=== PATIENT | female | born 1985 | race Caucasian/White ===

== ENCOUNTER 2017-01-26 20:34 | Inpatient (IN) | payer BC ==
[2017-01-26] MEDS ORDERED: Sodium Chloride 0.9% 2.5 ML Syringe FLUSH PRN (20:46)
[2017-01-26] MEDS ORDERED: Sodium Chloride 0.9% 10 ML Syringe FLUSH PRN (20:46)
[2017-01-26] MEDS ORDERED: Ampicillin 2 GM in Sodium Chloride 0.9% 100 ML IV ONE (20:46)
[2017-01-26] MEDS ORDERED: Butorphanol 1 MG/ML SDV IVPUSH PRN (20:46)
[2017-01-26] MEDS ORDERED: Lidocaine 1% 50 ML MDV INJECT PRN (20:46)
[2017-01-26] MEDS ORDERED: Terbutaline 1 MG/ML SDV SUBCUT PRN (20:46)
[2017-01-26] MEDS ORDERED: Methylergonovine 0.2 MG/1 ML Amp IM PRN (20:46)
[2017-01-26] MEDS ORDERED: Carboprost Tromethamine 250 MCG/1 ML Amp IM PRN (20:46)
[2017-01-26] MEDS ORDERED: Water For Irrigation,Sterile 1,000 ML Container IRR PRN (20:46)
[2017-01-26] MEDS ORDERED: Misoprostol 200 MCG Tab PO PRN (20:46)
[2017-01-26] MEDS ORDERED: Oxytocin/Lactated Ringers 30 UNIT/500 ML BAG IV SCH (21:00)
[2017-01-26] MEDS ORDERED: Misoprostol 25 MCG (1/4 of 100 MCG) Tab VAG SCH (21:00)
[2017-01-27] MEDS: Ampicillin 1 GM in Sodium Chloride 0.9% 50 ML IV SCH ×6 (01:45→21:53)
[2017-01-27] MEDS: Lactated Ringers 1,000 ML IV SCH (02:00)
[2017-01-27] MEDS: Misoprostol 25 MCG (1/4 of 100 MCG) Tab VAG PRN ×4 (04:01→17:44)
[2017-01-28] MEDS ORDERED: fentaNYL 100 MCG/2 ML SDV ONE ×2 (01:18→04:49)
[2017-01-28] MEDS ORDERED: Ropivacaine 0.2% 2 MG/ML 20 ML SDV ONE (01:19)
[2017-01-28] MEDS: Lactated Ringers 1,000 ML IV SCH ×2 (01:35→06:30)
[2017-01-28] MEDS: Ampicillin 1 GM in Sodium Chloride 0.9% 50 ML IV SCH ×4 (02:06→15:32)
--- NOTE | 2017-01-28 02:10 | PCM.PREANE ---
Preanesthetic Assessment - Anesthesia/Transfusion/Family Hx Family History of Anesthesia Reaction: No Transfusion History: No Prior Transfusion(s) - Review of Systems General: No Symptoms Pulmonary: No Symptoms Cardiovascular: No Symptoms Gastrointestinal: No symptoms Neurological: No Symptoms Other: Reports: None - Physical Assessment Height: 1.68 m Weight: 83.461 kg ASA Class: 3 Airway Class: Mallampati = 2 ROM/Head Extension: Full - Lab Values: Laboratory Last Values WBC 9.86 K/uL (4.0-11.0) 01/26/17 21:05 RBC 4.34 M/uL (4.30-5.90) 01/26/17 21:05 Hgb 12.2 g/dL (12.0-16.0) 01/26/17 21:05 Hct 36.4 % (36.0-46.0) 01/26/17 21:05 MCV 83.9 fL (80.0-98.0) 01/26/17 21:05 MCH 28.1 pg (27.0-32.0) 01/26/17 21:05 MCHC 33.5 g/dL (31.0-37.0) 01/26/17 21:05 RDW Std Deviation 43.6 fl (28.0-62.0) 01/26/17 21:05 RDW Coeff of Kiya 14 % (11.0-15.0) 01/26/17 21:05 Plt Count 111 K/uL (150-400) L 01/26/17 21:05 MPV 12.50 fL (7.40-12.00) H 01/26/17 21:05 Nucleated RBC % 0.0 /100WBC 01/26/17 21:05 Nucleated RBCs # 0 K/uL 01/26/17 21:05 Blood Type O POSITIVE 01/26/17 21:05 Antibody Screen NEGATIVE 01/26/17 21:05 - Allergies Allergies/Adverse Reactions: Allergies Allergy/AdvReac Type Severity Reaction Status Date / Time No Known Allergies Allergy Verified 01/26/17 18:07 - Anesthesia Plan Free Text/Narrative:: Platelets 111 - Acknowledgements Anesthesia Type Planned: Epidural Pt an Appropriate Candidate for the Planned Anesthesia: Yes Alternatives and Risks of Anesthesia Discussed w Pt/Guardian: Yes Pt/Guardian Understands and Agrees with Anesthesia Plan: Yes PreAnesthesia Questionnaire - Past Health History Medical/Surgical History: Denies Medical/Surgical History Hematologic History: Reports: None (Current thrombocytopenia) - Past Surgical History HEENT Surgical History: Reports: Oral Surgery (Jaw surgery) - SUBSTANCE USE Smoking Status *Q: Never Smoker Recreational Drug Use History: No - CURRENT (IN HOUSE) MEDS Current Meds: Current Medications Butorphanol Tartrate (Stadol) 1 mg IVPUSH ASDIRECTED PRN PRN Reason: Pain Carboprost Tromethamine (Hemabate Ds) 250 mcg IM ASDIRECTED PRN PRN Reason: Post Hemorrhage Lactated Ringer's (Ringers, Lactated) 1,000 mls @ 150 mls/hr IV ASDIRECTED REDD Last Admin: 01/27/17 02:00 Dose: 150 mls/hr Oxytocin/Lactated Ringer's (Pitocin In Lr 30 Units/500 Ml) 30 unit in 500 mls @ 2 mls/hr IV TITRATE REDD; 2 MUNITS/MIN PRN Reason: Protocol Ampicillin Sodium 1 gm/ Sodium (Chloride) 50 mls @ 100 mls/hr IV Q4H REDD Last Admin: 01/28/17 02:06 Dose: 100 mls/hr Lidocaine HCl (Xylocaine 1%) 50 ml INJECT .ONCE PRN PRN Reason: Laceration repair Methylergonovine Maleate (Methergine) 0.2 mg IM ASDIRECTED PRN PRN Reason: Post Hemorrhage Misoprostol (Cytotec) 200 mcg PO .ONCE PRN PRN Reason: Post Hemorrhage Misoprostol (Cytotec) 25 mcg VAG .ONCE REDD Last Admin: 01/26/17 21:17 Dose: 25 mcg Sodium Chloride (Saline Flush) 10 ml FLUSH ASDIRECTED PRN PRN Reason: Keep Vein Open Sodium Chloride (Saline Flush) 2.5 ml FLUSH ASDIRECTED PRN PRN Reason: Keep Vein Open Sterile Water (Sterile Water For Irrigation) 1,000 ml IRR ASDIRECTED PRN PRN Reason: delivery Terbutaline Sulfate (Brethine) 0.25 mg SUBCUT ASDIRECTED PRN PRN Reason: Tacysystole Discontinued Medications Fentanyl (Sublimaze) Confirm Administered Dose 100 mcg .ROUTE .STK-MED ONE Stop: 01/28/17 01:19 Ampicillin Sodium 2 gm/ Sodium (Chloride) 100 mls @ 200 mls/hr IV ONETIME ONE Stop: 01/26/17 21:15 Last Admin: 01/26/17 21:17 Dose: 200 mls/hr Oxytocin/Lactated Ringer's (Pitocin In Lr 30 Units/500 Ml) 30 unit in 500 mls @ 999 mls/hr IV TITRATE REDD PRN Reason: 999 MUNITS/MIN Stop: 01/26/17 21:31 Ropivacaine/Fentanyl/NS (Fentanyl 2 Mcg-Ropiv 0.2%-Ns) Confirm Administered Dose 100 mls @ as directed .ROUTE .STK-MED ONE Stop: 01/28/17 01:19 Misoprostol (Cytotec) 25 mcg VAG Q4H PRN PRN Reason: Cervical Ripening Stop: 01/28/17 00:47 Last Admin: 01/27/17 17:44 Dose: 25 mcg Ropivacaine (Naropin 0.2%) Confirm Administered Dose 20 ml .ROUTE .STK-MED ONE Stop: 01/28/17 01:20
[2017-01-28] MEDS: Oxytocin/Lactated Ringers 30 UNIT/500 ML BAG IV SCH ×2 (02:37→10:43)
[2017-01-28] MEDS ORDERED: Acetaminophen 500 MG Tab PO PRN (11:49)
[2017-01-28] MEDS ORDERED: Lanolin 100% Cream 7 GM Tube TOP PRN (11:49)
[2017-01-28] MEDS ORDERED: Bisacodyl 10 MG Supp RECTAL PRN (11:49)
[2017-01-28] MEDS ORDERED: oxyCODONE 5 MG Tab PO PRN (11:49)
[2017-01-28] MEDS ORDERED: Ibuprofen 800 MG Tab PO PRN (11:49)
[2017-01-28] MEDS: Witch Hazel Medicated Pads 40/Jar TOP PRN (13:26)
[2017-01-28] MEDS: Benzocaine/Menthol 20%-0.5% Spray 78 GM Cannister TOP PRN (13:26)
[2017-01-28] MEDS: Docusate Sodium 100 MG Cap PO PRN (13:27)
--- NOTE | 2017-01-28 17:33 | PCM48HPAN ---
Post Anesthesia Note - EVALUATION WITHIN 48HRS OF ANESTHETIC Vital Signs in Normal Range: Yes Patient Participated in Evaluation: Yes Respiratory Function Stable: Yes Airway Patent: Yes Cardiovascular Function Stable: Yes Hydration Status Stable: Yes Pain Control Satisfactory: Yes Nausea and Vomiting Control Satisfactory: Yes Mental Status Recovered: Yes - COMMENTS/OBSERVATIONS Free Text/Narrative:: Denies any complaints at this time. States epidural worked well.
[2017-01-28] MEDS: Ibuprofen 800 MG Tab PO PRN (20:28)
--- NOTE | 2017-01-28 21:34 | OR ---
SURGEON: Khushi Hatch DATE OF PROCEDURE: 01/28/2017 BRIEF PREDELIVERY HISTORY: This is a 31-year-old, G1, P0, presented to Labor and Delivery on January 26, 2017, for induction of labor for gestational thrombocytopenia at 39 weeks. On admission, heart tracing was noted to be a category 1 status. The patient was not vero regularly and cervix was very unfavorable. Cervix was 1 cm, thick, and high on admission. Of note, blood work was done and platelets were back down to 111, but overall stable. Of note, throughout the patient's , there was no concern of bleeding diathesis. The patient did receive vaginal misoprostol for cervical ripening. The patient received a total of 5 doses of vaginal misoprostol for cervical ripening. The patient also did receive a Cook catheter mechanical dilation balloon. Once balloon was dislodged, the patient was noted to be 5 cm dilated, 70% effaced, and down to -2 station. The patient underwent amniotomy for copious clear fluid. The patient eventually did receive her epidural. IV Pitocin was given as the patient's contractions were noted to be spaced out. Eventually, the patient progressed to complete status and +2 station and started maternal expulsive efforts. Of note, the patient's second stage of labor was approximately 5 hours. PREOPERATIVE DIAGNOSES: 1. Intrauterine at 39 weeks and 1 day. 2. GBS positive, treated with multiple doses of ampicillin. 3. Induction of labor for gestational thrombocytopenia. POSTOPERATIVE DIAGNOSES: 1. Intrauterine at 39 weeks and 1 day. 2. Delivered. 3. Periurethral laceration. 4. Second-degree perineal laceration. PROCEDURES PERFORMED: 1. Spontaneous-assisted vaginal delivery. 2. Repair of periurethral laceration. 3. Repair of midline perineal laceration. ANESTHESIA TYPE: Epidural and local. ESTIMATED BLOOD LOSS: Approximately 200. FINDINGS: A viable female in vertex presentation with score of 9 and 10 at 1 and 5 minutes respectively and weight of 3600 grams. Normal intact placenta with 3-vessel cord. Periurethral and a midline second-degree perineal laceration. SPECIMEN REMOVED: Placenta. CONDITION: Postop, the patient and did tolerate the procedure well. COMPLICATIONS: None known. DESCRIPTION OF PROCEDURE: This female under epidural anesthesia delivered a viable female with score of 8 and 10 at 1 and 5 minutes respectively and weight of 3600 grams. Delivery was via spontaneous-assisted vaginal delivery with in vertex presentation. Of note, the patient's second stage of labor was noted to be approximately 5 hours. Upon delivery of vertex, the neck was checked, there was no nuchal to be reduced. The anterior shoulder spontaneously delivered followed by the body. The was bulb suctioned at delivery and had a spontaneous cry. The infant was placed directly on mother's abdomen at request and cord was doubly clamped and cut. Cord blood was collected and sent for analysis. After delivery of , IV Pitocin was given in a bolus fashion for active management of third stage of labor. With signs of placental separation, a uterine fundal massage was completed along with traction on the umbilical cord. A normal intact placenta with 3-vessel cord was delivered. After delivery of and placenta; the vagina, perineum, and rectum were explored. The patient had a heavy bleeding. Periurethral laceration was repaired with 4-0 Vicryl suture. The patient's second-degree perineal laceration was repaired with 3-0 Vicryl suture and a 2-0 Vicryl was used to reapproximate the bulbocavernosus muscles. After repair, the lower uterine segment and vagina were cleared of all clots and debris. Afterwards, the patient was cleansed, pads were changed, the bed was returned to functioning status. The patient and tolerated the procedure well. Sponge, lap, needle, and instrument counts were correct. JACIEL / ELLIOT /[id number] AVNI
[2017-01-29] MEDS: Ibuprofen 800 MG Tab PO PRN ×2 (04:18→12:39)
[2017-01-29] MEDS: Docusate Sodium 100 MG Cap PO PRN (09:42)
[2017-01-29] MEDS: Benzocaine/Menthol 20%-0.5% Spray 78 GM Cannister TOP PRN (09:53)
[2017-01-29] MEDS: Witch Hazel Medicated Pads 40/Jar TOP PRN (09:53)
[2017-01-29 11:15] VITALS: BP 105/68
--- NOTE | 2017-01-29 12:02 | PCM.PNPP ---
- General Info Date of Service: 01/29/17 Functional Status: Reports: pain controlled, tolerating diet, ambulating, urinating - Review of Systems General: Reports: No Symptoms HEENT: Reports: no symptoms Pulmonary: Reports: no symptoms Cardiovascular: Reports: No Symptoms Gastrointestinal: Reports: No symptoms Genitourinary: Reports: no symptoms Musculoskeletal: Reports: no symptoms Skin: Reports: no symptoms Neurological: Reports: No Symptoms Psychiatric: Reports: no symptoms - General Info Date of Service: 01/29/17 - Patient Data Vital Signs - most recent: Last Vital Signs Temp 37.1 C 01/29/17 09:00 Pulse 81 01/29/17 09:00 Resp 17 01/29/17 09:00 BP 105/68 01/29/17 09:00 Pulse Ox 97 01/29/17 09:00 Weight - most recent: 83.461 kg Lab Results - last 24 hrs: Laboratory Results - last 24 hr 01/29/17 Range/Units 05:30 Hgb 9.9 L (12.0-16.0) g/dL Hct 30.4 L (36.0-46.0) % Med Orders - Current: Current Medications Acetaminophen (Tylenol Extra Strength) 500 mg PO Q4H PRN PRN Reason: Pain Last Admin: 01/29/17 09:42 Dose: 500 mg Benzocaine/Menthol (Dermoplast Pain Relief 20%-0.5% Eastman) 78 gm TOP ASDIRECTED PRN PRN Reason: Perineal Comfort Measure Last Admin: 01/29/17 09:53 Dose: 1 can Bisacodyl (Dulcolax) 10 mg RECTAL .ONCE PRN PRN Reason: Constipation Butorphanol Tartrate (Stadol) 1 mg IVPUSH ASDIRECTED PRN PRN Reason: Pain Carboprost Tromethamine (Hemabate Ds) 250 mcg IM ASDIRECTED PRN PRN Reason: Post Hemorrhage Docusate Sodium (Colace) 100 mg PO BID PRN PRN Reason: Constipation Last Admin: 01/29/17 09:42 Dose: 100 mg Emollient Ointment (Lansinoh Hpa) 0 gm TOP ASDIRECTED PRN PRN Reason: Sore Nipples Lactated Ringer's (Ringers, Lactated) 1,000 mls @ 150 mls/hr IV ASDIRECTED REDD Last Admin: 01/28/17 06:30 Dose: 150 mls/hr Oxytocin/Lactated Ringer's (Pitocin In Lr 30 Units/500 Ml) 30 unit in 500 mls @ 2 mls/hr IV TITRATE REDD; 2 MUNITS/MIN PRN Reason: Protocol Last Admin: 01/28/17 10:43 Dose: 10 munits/min, 10 mls/hr Ibuprofen (Motrin) 800 mg PO Q6H PRN PRN Reason: Pain Last Admin: 01/29/17 04:18 Dose: 800 mg Ibuprofen (Motrin) 800 mg PO Q6H PRN PRN Reason: Pain Last Admin: 01/28/17 13:27 Dose: 800 mg Lidocaine HCl (Xylocaine 1%) 50 ml INJECT .ONCE PRN PRN Reason: Laceration repair Last Admin: 01/28/17 10:42 Dose: 50 ml Methylergonovine Maleate (Methergine) 0.2 mg IM ASDIRECTED PRN PRN Reason: Post Hemorrhage Misoprostol (Cytotec) 200 mcg PO .ONCE PRN PRN Reason: Post Hemorrhage Misoprostol (Cytotec) 25 mcg VAG .ONCE REDD Last Admin: 01/26/17 21:17 Dose: 25 mcg Oxycodone HCl (Oxycodone) 5 mg PO Q2H PRN PRN Reason: Pain Sodium Chloride (Saline Flush) 10 ml FLUSH ASDIRECTED PRN PRN Reason: Keep Vein Open Sodium Chloride (Saline Flush) 2.5 ml FLUSH ASDIRECTED PRN PRN Reason: Keep Vein Open Sterile Water (Sterile Water For Irrigation) 1,000 ml IRR ASDIRECTED PRN PRN Reason: delivery Last Admin: 01/28/17 10:42 Dose: 1,000 ml Terbutaline Sulfate (Brethine) 0.25 mg SUBCUT ASDIRECTED PRN PRN Reason: Tacysystole Witch Leanne (Tucks) 1 pad TOP ASDIRECTED PRN PRN Reason: comfort care Last Admin: 01/29/17 09:53 Dose: 1 tub Discontinued Medications Fentanyl (Sublimaze) Confirm Administered Dose 100 mcg .ROUTE .STK-MED ONE Stop: 01/28/17 01:19 Last Admin: 01/28/17 10:41 Dose: Not Given Fentanyl (Sublimaze) Confirm Administered Dose 100 mcg .ROUTE .STK-MED ONE Stop: 01/28/17 04:50 Last Admin: 01/28/17 10:41 Dose: Not Given Ampicillin Sodium 2 gm/ Sodium (Chloride) 100 mls @ 200 mls/hr IV ONETIME ONE Stop: 01/26/17 21:15 Last Admin: 01/26/17 21:17 Dose: 200 mls/hr Oxytocin/Lactated Ringer's (Pitocin In Lr 30 Units/500 Ml) 30 unit in 500 mls @ 999 mls/hr IV TITRATE REDD PRN Reason: 999 MUNITS/MIN Stop: 01/26/17 21:31 Last Admin: 01/28/17 09:53 Dose: Not Given Ampicillin Sodium 1 gm/ Sodium (Chloride) 50 mls @ 100 mls/hr IV Q4H [facility] Last Admin: 01/28/17 15:32 Dose: Not Given Ropivacaine/Fentanyl/NS (Fentanyl 2 Mcg-Ropiv 0.2%-Ns) Confirm Administered Dose 100 mls @ as directed .ROUTE .STK-MED ONE Stop: 01/28/17 01:19 Last Admin: 01/28/17 10:41 Dose: Not Given Ropivacaine/Fentanyl/NS (Fentanyl 2 Mcg-Ropiv 0.2%-Ns) Confirm Administered Dose 100 mls @ as directed .ROUTE .STK-MED ONE Stop: 01/28/17 09:45 Last Admin: 01/28/17 10:42 Dose: Not Given Misoprostol (Cytotec) 25 mcg VAG Q4H PRN PRN Reason: Cervical Ripening Stop: 01/28/17 00:47 Last Admin: 01/27/17 17:44 Dose: 25 mcg Ropivacaine (Naropin 0.2%) Confirm Administered Dose 20 ml .ROUTE .STK-MED ONE Stop: 01/28/17 01:20 Last Admin: 01/28/17 10:41 Dose: Not Given - Interaction Infant Disposition, : [place] in Room with Family Interaction: Holding Infant Feeding: Breastfed ; Nursed Well Support Person: - Recovery Exam Fundal Tone: Firm Fundal Level: 1 Fingerbreadths Below Umbilicus Fundal Placement: Midline Lochia Amount: Scant Lochia Color: Rubra/Red Perineum Description: Intact, Minimal Bruising/Swelling Episiotomy/Laceration: Approximated Bladder Status: Nonpalpable, Voiding Urinary Elimination: Voided - Exam General: alert, oriented Neck: supple Lungs: Clear to auscultation, Normal respiratory effort Cardiovascular: Regular Rate, Regular Rhythm Abdomen: bowel sounds present, soft, no tenderness Extremities: no calf tenderness Skin: warm, dry, intact Neurological: no new focal deficit Psy/Mental Status: alert, normal affect, normal mood - Problem List & Annotations (1) Vaginal delivery SNOMED Code(s): 160352390 Code(s): O80 - ENCOUNTER FOR FULL-TERM UNCOMPLICATED DELIVERY Status: Acute Current Visit: Yes - Problem List Review Problem List Initiated/Reviewed/Updated: Yes - My Orders Last 24 Hours: My Active Orders 01/28/17 11:49 Patient Status [ADT] Routine May Shower [RC] ASDIRECTED Up ad Tsering [RC] ASDIRECTED Vital Signs [RC] PER UNIT ROUTINE Acetaminophen [Tylenol Extra Strength] 500 mg PO Q4H PRN Benzocaine/Menthol [Dermoplast Pain Relief 20%-0.5% Eastman] 78 gm TOP ASDIRECTED PRN Bisacodyl [Dulcolax] 10 mg RECTAL .ONCE PRN Docusate Sodium [Colace] 100 mg PO BID PRN Ibuprofen [Motrin] 800 mg PO Q6H PRN Lanolin [Lansinoh HPA] See Dose Instructions TOP ASDIRECTED PRN Witch Leanne [Tucks] 1 pad TOP ASDIRECTED PRN oxyCODONE 5 mg PO Q2H PRN Assess Lochia [WOMSER] Per Unit Routine Assess Uterine Involution [WOMSER] Per Unit Routine Breast Pump [WOMSER] Per Unit Routine Peripheral IV Discontinue [OM.PC] Routine 01/28/17 11:51 Ice Therapy [OM.PC] Per Unit Routine Perineal Care [OM.PC] Per Unit Routine Sitz Bath [OM.PC] Per Unit Routine - Assessment Assessment:: PPD#1 S/p SAVD Doing well Anticipate discharge home tomorrow - Plan Plan:: Increase ambulation Work in breast feeding Routine care
== END 2017-01-29 19:55 | disposition home or self-care (01) | DRG 560 ==
LOC: MW.OBCHECK 20:34 → MW.OB 20:35 → MW.OBCHECK 20:36 → MW.OB 20:36 → OBSVTOIN 01-28 09:53 → MW.OB 01-28 13:30
PROVIDERS: ADMIT Obstetrics & Gynecology; ATTEND Obstetrics & Gynecology
PROC: 10E0XZZ Delivery of Products of Conception, External Approach (ICD-10-PCS; principal; 2017-01-28)
PROC: 0KQM0ZZ Repair Perineum Muscle, Open Approach (ICD-10-PCS; 2017-01-28)
PROC: 3E0P7GC Introduction of Other Therapeutic Substance into Female Reproductive, Via Natural or Artificial Opening (ICD-10-PCS; 2017-01-28)
PROC: 00HU33Z Insertion of Infusion Device into Spinal Canal, Percutaneous Approach (ICD-10-PCS; 2017-01-28)
PROC: 3E0R3CZ (ICD-10-PCS; 2017-01-28)
DX: O99.12 Other diseases of the blood and blood-forming organs and certain disorders involving the immune mechanism complicating childbirth (principal); O70.1 Second degree perineal laceration during delivery; Z3A.39 39 weeks gestation of pregnancy; Z37.0 Single live birth; O99.824 Streptococcus B carrier state complicating childbirth
CPT/HCPCS: 01967; 36415; 59025; 85014; 85018; 85027; 86850; 86900; 86901; A9270-GY; J0290; J2795; J3010; J7030; J7050; J7120

== ENCOUNTER 2020-04-25 10:37 | Inpatient (IN) | payer BC ==
[2020-04-25] MEDS ORDERED: Lidocaine 1% 50 ML MDV INJECT PRN (13:52)
[2020-04-25] MEDS ORDERED: Nalbuphine 10 MG/1 ML Vial IVPUSH PRN (13:52)
[2020-04-25] MEDS ORDERED: Sodium Chloride 0.9% 10 ML Syringe FLUSH PRN (13:52)
[2020-04-25] MEDS ORDERED: Sodium Chloride 0.9% 2.5 ML Syringe FLUSH PRN (13:52)
[2020-04-25] MEDS ORDERED: Butorphanol 1 MG/ML SDV IVPUSH PRN (13:52)
[2020-04-25] MEDS ORDERED: Terbutaline 1 MG/ML SDV SUBCUT PRN (13:52)
[2020-04-25] MEDS ORDERED: Sodium Chloride 0.9% 10 ML SDV IV PRN (13:52)
[2020-04-25] MEDS ORDERED: Methylergonovine 0.2 MG/1 ML Amp IM PRN (13:52)
[2020-04-25] MEDS ORDERED: Misoprostol 200 MCG Tab PO PRN (13:52)
[2020-04-25] MEDS ORDERED: Ondansetron 4 MG/2 ML SDV IVPUSH PRN (13:52)
[2020-04-25] MEDS ORDERED: Water For Irrigation,Sterile 1,000 ML Container IRR PRN (13:52)
[2020-04-25] MEDS ORDERED: Carboprost Tromethamine 250 MCG/1 ML Amp IM PRN (13:52)
[2020-04-25] MEDS ORDERED: Tranexamic Acid 1,000 MG in Sodium Chloride 0.9% 100 ML IV PRN (13:52)
[2020-04-25] MEDS ORDERED: Oxytocin/0.9 % Sodium Chloride 30 UNIT/500 ML BAG IV SCH ×2 (14:00)
[2020-04-25] MEDS ORDERED: Ampicillin 2 GM in Sodium Chloride 0.9% 100 ML IV ONE (15:00)
[2020-04-25] MEDS: Lactated Ringers 1,000 ML IV SCH (15:45)
[2020-04-25] MEDS: Misoprostol 25 MCG (1/4 of 100 MCG) Tab VAG PRN ×2 (16:11→20:15)
[2020-04-25] MEDS: Ampicillin 1 GM in Sodium Chloride 0.9% 50 ML IV SCH (20:05)
[2020-04-26] MEDS: Ampicillin 1 GM in Sodium Chloride 0.9% 50 ML IV SCH ×3 (00:08→07:36)
[2020-04-26] MEDS ORDERED: Ropivacaine HCl/PF 100 ML ONE (04:13)
[2020-04-26] MEDS ORDERED: fentaNYL 100 MCG/2 ML SDV ONE (04:13)
[2020-04-26] MEDS: Lactated Ringers 1,000 ML IV SCH ×2 (04:34→07:41)
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
--- NOTE | 2020-04-26 04:41 | PCM.PRNOTE ---
- Free Text/Narrative Note: Anes Note Patient requests epidural for L&D. Sitting position, level L3-L4 midline approach. Sterile technique, chloraprep scrub to lumbar area. Sterile fenestrated drape applied. Epidural space easily achieved using BRENDA technique. BRENDA at 4 cm. Cath threaded easily 5 cm. Cath secured at 11 cm at skin using sterile clear adhesive dressing. Test 0426 3 cc 1 .5% lido with epi negative. 0430 Load 10 cc 0.2% ropiv with 1 mcg cc fentanyl in slow divided doses. 0435 pump started with 90 cc same solution. Rate is 8 cc hr with 6 cc q 20 min prn bolus. Maria Alejandra well. Time with patient [id number] Keenan Claire CRNA
--- NOTE | 2020-04-26 11:05 | PCM.DEL ---
<Facundo Boyd - Last Filed: 04/26/20 11:00> L & D Note - General Info Date of Service: 04/26/20 - Delivery Note Labor: Augmented by Oxytocin Cervical Ripening Method: Misoprostil Delivery Outcome: Livebirth Delivery Method: Spontaneous Vaginal Delivery-Single Delivery Mode: Spontaneous Presentation: Right Occiput Anterior (AARON) Nuchal Cord: Present Anesthesia Type: Epidural Amniotic Fluid Description: Clear Episiotomy Type: None Laceration: 1st Degree Suture type: Vicryl Suture size: 3-0 Placenta: Intact, Spontaneous Cord: 3 Vessels Estimated Blood Loss: 300 Resuscitation Needed: No Jamison: Suctioned, Warmer Used Score 1 min: 8 Score 5 min: 8 Second Stage Interventions: Reports: Pushing Effectively, Pushing, Stirrups/Leg Supports Delivery Comments (Free Text/Narrative):: of 3880 g (8 lb 9 oz) female live infant by 34-year-old now following IOL at 39w0d due to gestational thrombocytopenia. - Patient Data Weight - Most Recent: 86.183 kg Lab Results Last 24 Hours: Laboratory Results - last 24 hr 04/25/20 04/25/20 04/25/20 Range/Units 14:08 15:35 15:35 WBC 9.61 (4.0-11.0) K/uL RBC 3.57 L (4.30-5.90) M/uL Hgb 10.8 L (12.0-16.0) g/dL Hct 32.3 L (36.0-46.0) % MCV 90.5 (80.0-98.0) fL MCH 30.3 (27.0-32.0) pg MCHC 33.4 (31.0-37.0) g/dL RDW Std Deviation 48.7 (28.0-62.0) fl RDW Coeff of Kiya 15 (11.0-15.0) % Plt Count 152 (150-400) K/uL MPV 12.20 H (7.40-12.00) fL Nucleated RBC % 0.0 /100WBC Nucleated RBCs # 0 K/uL COVID-19 (OLE) NEGATIVE (NEGATIVE) Blood Type O POSITIVE Antibody Screen NEGATIVE Med Orders - Current: Current Medications Butorphanol Tartrate (Stadol) 1 mg IVPUSH Q1H PRN PRN Reason: Pain Carboprost Tromethamine (Hemabate Ds) 250 mcg IM ASDIRECTED PRN PRN Reason: Post Hemorrhage Oxytocin/Sodium Chloride (Oxytocin 30 Unit/500 Ml-Ns) 30 unit in 500 mls @ 999 mls/hr IV TITRATE [facility] Tranexamic Acid 1,000 mg/ (Sodium Chloride) 110 mls @ 660 mls/hr IV ONETIME PRN PRN Reason: Bleeding Oxytocin/Sodium Chloride (Oxytocin 30 Unit/500 Ml-Ns) 30 unit in 500 mls @ 2 mls/hr IV TITRATE [facility]; Protocol Last Titration: 04/26/20 05:22 Dose: 4 munits/min, 4 mls/hr Documented by: Lactated Ringer's (Ringers, Lactated) 1,000 mls @ 150 mls/hr IV ASDIRECTED REDD Last Admin: 04/26/20 07:41 Dose: 150 mls/hr Documented by: Ampicillin Sodium 1 gm/ Sodium (Chloride) 50 mls @ 100 mls/hr IV Q4H [facility] Last Admin: 04/26/20 07:36 Dose: 100 mls/hr Documented by: Lidocaine HCl (Xylocaine 1%) 50 ml INJECT ONETIME PRN PRN Reason: Laceration repair Methylergonovine Maleate (Methergine) 0.2 mg IM ASDIRECTED PRN PRN Reason: Post Hemorrhage Misoprostol (Cytotec) 200 mcg PO ONETIME PRN PRN Reason: Post Hemorrhage Misoprostol (Cytotec) 25 mcg VAG Q4H PRN PRN Reason: Cervical Ripening Last Admin: 04/25/20 20:15 Dose: 25 mcg Documented by: Nalbuphine HCl (Nubain) 10 mg IVPUSH Q1H PRN PRN Reason: Pain (severe 7-10) Ondansetron HCl (Zofran) 4 mg IVPUSH Q6H PRN PRN Reason: Nausea/Vomiting Sodium Chloride (Saline Flush) 10 ml FLUSH ASDIRECTED PRN PRN Reason: Keep Vein Open Sodium Chloride (Saline Flush) 2.5 ml FLUSH ASDIRECTED PRN PRN Reason: Keep Vein Open Sodium Chloride (Normal Saline) 10 ml IV ASDIRECTED PRN PRN Reason: IV Use Sterile Water (Sterile Water For Irrigation) 1,000 ml IRR ASDIRECTED PRN PRN Reason: delivery Terbutaline Sulfate (Brethine) 0.25 mg SUBCUT ASDIRECTED PRN PRN Reason: Tacysystole Discontinued Medications Fentanyl (Sublimaze) Confirm Administered Dose 100 mcg .ROUTE .STK-MED ONE Stop: 04/26/20 04:14 Ampicillin Sodium 2 gm/ Sodium (Chloride) 100 mls @ 200 mls/hr IV ONETIME ONE Stop: 04/25/20 15:29 Last Admin: 04/25/20 16:08 Dose: 200 mls/hr Documented by: Ropivacaine (Naropin 0.2%) Confirm Administered Dose 100 mls @ as directed .ROUTE .STK-MED ONE Stop: 04/26/20 04:14 <Yulia Du - Last Filed: 04/26/20 11:13> L & D Note - General Info Mother's Due Date: 05/01/20 - Delivery Note Nuchal Cord: Reduced (after delivery of body) Laceration: Periurethral (right) - General Info Date of Service: 04/26/20 - Patient Data Lab Results Last 24 Hours: Laboratory Results - last 24 hr 04/25/20 04/25/20 04/25/20 Range/Units 14:08 15:35 15:35 WBC 9.61 (4.0-11.0) K/uL RBC 3.57 L (4.30-5.90) M/uL Hgb 10.8 L (12.0-16.0) g/dL Hct 32.3 L (36.0-46.0) % MCV 90.5 (80.0-98.0) fL MCH 30.3 (27.0-32.0) pg MCHC 33.4 (31.0-37.0) g/dL RDW Std Deviation 48.7 (28.0-62.0) fl RDW Coeff of Kiya 15 (11.0-15.0) % Plt Count 152 (150-400) K/uL MPV 12.20 H (7.40-12.00) fL Nucleated RBC % 0.0 /100WBC Nucleated RBCs # 0 K/uL COVID-19 (OLE) NEGATIVE (NEGATIVE) Blood Type O POSITIVE Antibody Screen NEGATIVE Med Orders - Current: Current Medications Acetaminophen (Tylenol Extra Strength) 1,000 mg PO Q6H PRN PRN Reason: Pain Benzocaine/Menthol (Dermoplast Pain Relief 20%-0.5% [place]) 78 gm TOP ASDIRECTED PRN PRN Reason: Perineal Comfort Measure Bisacodyl (Dulcolax) 10 mg RECTAL ONETIME PRN PRN Reason: Constipation Butorphanol Tartrate (Stadol) 1 mg IVPUSH Q1H PRN PRN Reason: Pain Carboprost Tromethamine (Hemabate Ds) 250 mcg IM ASDIRECTED PRN PRN Reason: Post Hemorrhage Docusate Sodium (Colace) 100 mg PO BID PRN PRN Reason: Constipation Emollient Ointment (Lansinoh Hpa) 0 gm TOP ASDIRECTED PRN PRN Reason: Sore Nipples Oxytocin/Sodium Chloride (Oxytocin 30 Unit/500 Ml-Ns) 30 unit in 500 mls @ 999 mls/hr IV TITRATE [facility] Tranexamic Acid 1,000 mg/ (Sodium Chloride) 110 mls @ 660 mls/hr IV ONETIME PRN PRN Reason: Bleeding Oxytocin/Sodium Chloride (Oxytocin 30 Unit/500 Ml-Ns) 30 unit in 500 mls @ 2 mls/hr IV TITRATE [facility]; Protocol Last Titration: 04/26/20 05:22 Dose: 4 munits/min, 4 mls/hr Documented by: Lactated Ringer's (Ringers, Lactated) 1,000 mls @ 150 mls/hr IV ASDIRECTED [facility] Last Admin: 04/26/20 07:41 Dose: 150 mls/hr Documented by: Ampicillin Sodium 1 gm/ Sodium (Chloride) 50 mls @ 100 mls/hr IV Q4H [facility] Last Admin: 04/26/20 07:36 Dose: 100 mls/hr Documented by: Ibuprofen (Motrin) 800 mg PO Q8H PRN PRN Reason: Pain Lidocaine HCl (Xylocaine 1%) 50 ml INJECT ONETIME PRN PRN Reason: Laceration repair Methylergonovine Maleate (Methergine) 0.2 mg IM ASDIRECTED PRN PRN Reason: Post Hemorrhage Misoprostol (Cytotec) 200 mcg PO ONETIME PRN PRN Reason: Post Hemorrhage Misoprostol (Cytotec) 25 mcg VAG Q4H PRN PRN Reason: Cervical Ripening Last Admin: 04/25/20 20:15 Dose: 25 mcg Documented by: Nalbuphine HCl (Nubain) 10 mg IVPUSH Q1H PRN PRN Reason: Pain (severe 7-10) Ondansetron HCl (Zofran) 4 mg IVPUSH Q6H PRN PRN Reason: Nausea/Vomiting Oxycodone HCl (Oxycodone) 5 mg PO Q2H PRN PRN Reason: Pain Sertraline HCl (Zoloft) 75 mg PO DAILY REDD Sodium Chloride (Saline Flush) 10 ml FLUSH ASDIRECTED PRN PRN Reason: Keep Vein Open Sodium Chloride (Saline Flush) 2.5 ml FLUSH ASDIRECTED PRN PRN Reason: Keep Vein Open Sodium Chloride (Normal Saline) 10 ml IV ASDIRECTED PRN PRN Reason: IV Use Sterile Water (Sterile Water For Irrigation) 1,000 ml IRR ASDIRECTED PRN PRN Reason: delivery Terbutaline Sulfate (Brethine) 0.25 mg SUBCUT ASDIRECTED PRN PRN Reason: Tacysystole Witch Leanne (Tucks) 1 pad TOP ASDIRECTED PRN PRN Reason: comfort care Discontinued Medications Fentanyl (Sublimaze) Confirm Administered Dose 100 mcg .ROUTE .STK-MED ONE Stop: 04/26/20 04:14 Ampicillin Sodium 2 gm/ Sodium (Chloride) 100 mls @ 200 mls/hr IV ONETIME ONE Stop: 04/25/20 15:29 Last Admin: 04/25/20 16:08 Dose: 200 mls/hr Documented by: Ropivacaine (Naropin 0.2%) Confirm Administered Dose 100 mls @ as directed .ROUTE .STK-MED ONE Stop: 04/26/20 04:14 - Problem List & Annotations (1) Vaginal delivery SNOMED Code(s): 155597505 Code(s): O80 - ENCOUNTER FOR FULL-TERM UNCOMPLICATED DELIVERY Status: Acute Current Visit: No - Problem List Review Problem List Initiated/Reviewed/Updated: Yes - My Orders Last 24 Hours: My Active Orders 04/26/20 Lunch Regular Diet [DIET] 04/26/20 11:09 Patient Status [ADT] Routine May Shower [RC] ASDIRECTED Notify Provider Vital Signs [RC] ASDIRECTED Up ad Tsering [RC] ASDIRECTED Vital Signs [RC] PER UNIT ROUTINE Acetaminophen [Tylenol Extra Strength] 1,000 mg PO Q6H PRN Benzocaine/Menthol [Dermoplast Pain Relief 20%-0.5% [place]] 78 gm TOP ASDIRECTED PRN Docusate Sodium [Colace] 100 mg PO BID PRN Ibuprofen [Motrin] 800 mg PO Q8H PRN Lanolin [Lansinoh HPA] See Dose Instructions TOP ASDIRECTED PRN bisacodyL [Dulcolax] 10 mg RECTAL ONETIME PRN oxyCODONE 5 mg PO Q2H PRN witch Leanne [Tucks] 1 pad TOP ASDIRECTED PRN Assess Lochia [WOMSER] Per Unit Routine Assess Uterine Involution [WOMSER] Per Unit Routine Breast Pump [WOMSER] Per Unit Routine Ice Therapy [OM.PC] Per Unit Routine Perineal Care [OM.PC] Per Unit Routine Peripheral IV Discontinue [OM.PC] Routine Sitz Bath [OM.PC] Per Unit Routine 04/26/20 11:10 Cooling Warming Measures [RC] ASDIRECTED 04/27/20 05:11 HEMOGLOBIN/HEMATOCRIT,HH [HEME] Timed 04/27/20 09:00 Sertraline [Zoloft] 75 mg PO DAILY - Assessment Assessment:: 34yo s/p at 39w2d - Plan Plan:: Admit to unit for routine care. Received adequate antibiotic prophylaxis with Ampicillin for GBS+ status.
[2020-04-26] MEDS ORDERED: Ibuprofen 800 MG Tab PO PRN (11:09)
[2020-04-26] MEDS ORDERED: oxyCODONE 5 MG Tab PO PRN (11:09)
[2020-04-26] MEDS ORDERED: Bisacodyl 10 MG Supp RECTAL PRN (11:09)
[2020-04-26] MEDS ORDERED: Docusate Sodium 100 MG Cap PO PRN (11:09)
[2020-04-26] MEDS ORDERED: Benzocaine/Menthol 20%-0.5% Spray 78 GM Cannister TOP PRN (11:09)
[2020-04-26] MEDS ORDERED: Witch Hazel Medicated Pads 40/Jar TOP PRN (11:09)
[2020-04-26] MEDS ORDERED: Lanolin 100% Cream 7 GM Tube TOP PRN (11:09)
[2020-04-26] MEDS: Acetaminophen 500 MG Tab PO PRN ×2 (12:43→22:43)
[2020-04-26] MEDS ORDERED: Sodium Chloride 0.9% 100 ML ONE (13:27)
--- NOTE | 2020-04-26 13:55 | PCM.SN.2 ---
- Free Text/Narrative Note: Notified by RN of patient with bleeding and clots, 1200g on scale. Order given for stat CBC, 1g IV tranexamic acid, and 0.2mg IM methergine. BP normal, pulse 100s. Bladder emptied 800cc. Upon arrival, large amount of blood and clot noted on new pad. Bimanual exam performed with moderate amount of clot evacuated. Fundus remained firm throughout exam. Clot and blood measured, 600g on scale. 1000mcg misoprostol placed per rectum. CBC is pending. Total EBL since delivery 2100cc. Reviewed signs of blood-loss anemia with patient and when to call nurse. Will monitor continued blood loss closely. Discussed with patient risk of needing blood transfusion given significant hemorrhage. Pulse now in 80-90s.
--- NOTE | 2020-04-26 14:07 | OR ---
SURGEON: Yulia Du MD DATE OF PROCEDURE: 04/26/2020 PREOPERATIVE DIAGNOSES: 1. A 34-year-old G2, P1-0-0-1 at 39 weeks 1 day gestation. 2. Gestational thrombocytopenia. 3. Group B Streptococcus positive. POSTOPERATIVE DIAGNOSES: 1. A 34-year-old G2, P2-0-0-2 status post spontaneous vaginal delivery at 39 weeks 2 days' gestation. 2. Gestational thrombocytopenia. 3. Group B Streptococcus positive. 4. First-degree perineal and right periurethral lacerations. PROCEDURE: Spontaneous vaginal delivery and repair of first-degree perineal and right periurethral lacerations. PRIMARY SURGEON: Yulia Du MD COAGULATING BATH OPERATOR: Facundo Boyd, medical student. ANESTHESIA: Epidural. ESTIMATED BLOOD LOSS: 300 mL. FINDINGS: Live female infant in cephalic presentation. scores of 8 and 8 at one and five minutes respectively. Weight 3880 g. First-degree perineal and right periurethral lacerations. Placenta intact with 3-vessel cord. INDICATIONS: This is a 34-year-old G2, P1-0-0-1, who presented at 39 weeks 1 day gestation for planned induction of labor due to gestational thrombocytopenia. On presentation, her platelets were found to be normal at 152. Cytotec was started for induction of labor. Ampicillin was begun for GBS prophylaxis. At approximately 4 cm dilated, Pitocin was started. At 7 cm dilated, the patient underwent artificial rupture of membranes with clear fluid noted. She received an epidural for pain control. She progressed to complete cervical dilation and began pushing. I was called to the room. DESCRIPTION OF PROCEDURE: I arrived to the room with head at +3 station. Over the next several contractions, the patient pushed and delivered a live female infant. The head was delivered followed by the shoulders and remainder of the body. Nuchal cord x1 was reduced after delivery of the body. The infant was placed on maternal abdomen. After approximately 60 seconds, the cord was clamped and cut. The placenta then delivered intact with 3-vessel cord via the Bradford-Sutherland maneuver. The perineum was inspected, and first-degree perineal and a right periurethral laceration were noted. These were repaired to anatomy and hemostasis with 3-0 Vicryl. Fundus was firm below the umbilicus with minimal bleeding. The patient and infant tolerated the delivery well. [id number] / MODL /[id number] AVNI
--- NOTE | 2020-04-26 14:32 | PCM.SN.2 ---
- Free Text/Narrative Note: BP 110/60-70s, HR 60-70s Fundus has remained firm with scant bleeding since administration of methergine, tranexamic acid, and misoprostol. Platelets 113, hemoglobin 11.6 Will monitor bleeding and VS closely, repeat CBC in 4 hours - if remains stable at that time, will repeat in AM.
--- NOTE | 2020-04-27 07:28 | PCM48HPAN ---
Post Anesthesia Note - EVALUATION WITHIN 48HRS OF ANESTHETIC Vital Signs in Normal Range: Yes Patient Participated in Evaluation: Yes Respiratory Function Stable: Yes Airway Patent: Yes Cardiovascular Function Stable: Yes Hydration Status Stable: Yes Pain Control Satisfactory: Yes Nausea and Vomiting Control Satisfactory: Yes Mental Status Recovered: Yes Vital Signs: Last Vital Signs Temp 36.2 C 04/27/20 05:19 Pulse 84 04/27/20 05:19 Resp 15 04/27/20 05:19 BP 94/52 L 04/27/20 05:19 Pulse Ox 96 04/27/20 05:19
[2020-04-27 07:42] VITALS: BP 121/74; PULSE 109
--- NOTE | 2020-04-27 07:44 | PCM.PNPP ---
<Facundo Boyd - Last Filed: 04/27/20 07:39> - General Info Date of Service: 04/27/20 Functional Status: Reports: Pain Controlled, Tolerating Diet, Ambulating, Urinating, Other (Lochia is watery and brownish this morning, no blood clots) - Review of Systems General: Reports: No Symptoms, Other (States that "she is feeling pretty good". Denies dizziness. ) HEENT: Reports: No Symptoms Pulmonary: Reports: No Symptoms, Other (Denies SOB and cough) Cardiovascular: Reports: No Symptoms, Other (Denies chest pain and orthopnea) Gastrointestinal: Reports: No Symptoms, Flatus, Other (Denies abdominal pain or constipation. Has had flatus but not a BM yet) Genitourinary: Reports: No Symptoms, Other (Has been voiding) Musculoskeletal: Reports: No Symptoms Skin: Reports: No Symptoms Neurological: Reports: No Symptoms Psychiatric: Reports: No Symptoms - General Info Date of Service: 04/27/20 - Patient Data Vital Signs - Most Recent: Last Vital Signs Temp 36.2 C 04/27/20 05:19 Pulse 84 04/27/20 05:19 Resp 15 04/27/20 05:19 BP 94/52 L 04/27/20 05:19 Pulse Ox 96 04/27/20 05:19 Weight - Most Recent: 86.183 kg Lab Results - Last 24 Hours: Laboratory Results - last 24 hr 04/26/20 04/26/20 04/27/20 Range/Units 13:55 18:02 05:50 WBC 11.92 H 13.11 H 11.55 H (4.0-11.0) K/uL RBC 3.81 L 3.70 L 3.20 L (4.30-5.90) M/uL Hgb 11.6 L 11.2 L 9.9 L (12.0-16.0) g/dL Hct 34.7 L 33.6 L 29.0 L (36.0-46.0) % MCV 91.1 90.8 90.6 (80.0-98.0) fL MCH 30.4 30.3 30.9 (27.0-32.0) pg MCHC 33.4 33.3 34.1 (31.0-37.0) g/dL RDW Std Deviation 48.8 49.2 49.0 (28.0-62.0) fl RDW Coeff of Kiya 15 15 15 (11.0-15.0) % Plt Count 113 L 106 L 99 L (150-400) K/uL MPV 11.90 12.10 H 11.60 (7.40-12.00) fL Neut % (Auto) 82.5 H (48.0-80.0) % Lymph % (Auto) 8.6 L (16.0-40.0) % Moca % (Auto) 8.1 (0.0-15.0) % Eos % (Auto) 0.6 (0.0-7.0) % Baso % (Auto) 0.2 (0.0-1.5) % Neut # (Auto) 9.8 H (1.4-5.7) K/uL Lymph # (Auto) 1.0 (0.6-2.4) K/uL Moca # (Auto) 1.0 H (0.0-0.8) K/uL Eos # (Auto) 0.1 (0.0-0.7) K/uL Baso # (Auto) 0.0 (0.0-0.1) K/uL Nucleated RBC % 0.0 0.0 0.0 /100WBC Nucleated RBCs # 0 0 0 K/uL Med Orders - Current: Current Medications Acetaminophen (Tylenol Extra Strength) 1,000 mg PO Q6H PRN PRN Reason: Pain Last Admin: 04/26/20 22:43 Dose: 1,000 mg Documented by: Ascorbic Acid (Vitamin C) 500 mg PO BIDMEALS REDD Benzocaine/Menthol (Dermoplast Pain Relief 20%-0.5% [place]) 78 gm TOP ASDIRECTED PRN PRN Reason: Perineal Comfort Measure Last Admin: 04/26/20 12:44 Dose: 1 canister Documented by: Bisacodyl (Dulcolax) 10 mg RECTAL ONETIME PRN PRN Reason: Constipation Butorphanol Tartrate (Stadol) 1 mg IVPUSH Q1H PRN PRN Reason: Pain Carboprost Tromethamine (Hemabate Ds) 250 mcg IM ASDIRECTED PRN PRN Reason: Post Hemorrhage Docusate Sodium (Colace) 100 mg PO BID PRN PRN Reason: Constipation Last Admin: 04/26/20 12:44 Dose: 100 mg Documented by: Emollient Ointment (Lansinoh Hpa) 0 gm TOP ASDIRECTED PRN PRN Reason: Sore Nipples Last Admin: 04/26/20 12:44 Dose: 7 gm Documented by: Ferrous Sulfate (Ferrous Sulfate) 325 mg PO BIDMEALS REDD Oxytocin/Sodium Chloride (Oxytocin 30 Unit/500 Ml-Ns) 30 unit in 500 mls @ 999 mls/hr IV TITRATE REDD Tranexamic Acid 1,000 mg/ (Sodium Chloride) 110 mls @ 660 mls/hr IV ONETIME PRN PRN Reason: Bleeding Last Admin: 04/26/20 13:30 Dose: 660 mls/hr Documented by: Oxytocin/Sodium Chloride (Oxytocin 30 Unit/500 Ml-Ns) 30 unit in 500 mls @ 2 mls/hr IV TITRATE REDD; Protocol Last Titration: 04/26/20 10:37 Dose: 999 munits/min, 999 mls/hr Documented by: Lactated Ringer's (Ringers, Lactated) 1,000 mls @ 150 mls/hr IV ASDIRECTED REDD Last Admin: 04/26/20 07:41 Dose: 150 mls/hr Documented by: Ibuprofen (Motrin) 800 mg PO Q8H PRN PRN Reason: Pain Lidocaine HCl (Xylocaine 1%) 50 ml INJECT ONETIME PRN PRN Reason: Laceration repair Methylergonovine Maleate (Methergine) 0.2 mg IM ASDIRECTED PRN PRN Reason: Post Hemorrhage Last Admin: 04/26/20 13:22 Dose: 0.2 mg Documented by: Misoprostol (Cytotec) 200 mcg PO ONETIME PRN PRN Reason: Post Hemorrhage Last Admin: 04/26/20 13:44 Dose: 1,000 mcg Documented by: Misoprostol (Cytotec) 25 mcg VAG Q4H PRN PRN Reason: Cervical Ripening Last Admin: 04/25/20 20:15 Dose: 25 mcg Documented by: Nalbuphine HCl (Nubain) 10 mg IVPUSH Q1H PRN PRN Reason: Pain (severe 7-10) Ondansetron HCl (Zofran) 4 mg IVPUSH Q6H PRN PRN Reason: Nausea/Vomiting Oxycodone HCl (Oxycodone) 5 mg PO Q2H PRN PRN Reason: Pain Sertraline HCl (Zoloft) 75 mg PO DAILY [facility] Sodium Chloride (Saline Flush) 10 ml FLUSH ASDIRECTED PRN PRN Reason: Keep Vein Open Sodium Chloride (Saline Flush) 2.5 ml FLUSH ASDIRECTED PRN PRN Reason: Keep Vein Open Sodium Chloride (Normal Saline) 10 ml IV ASDIRECTED PRN PRN Reason: IV Use Sterile Water (Sterile Water For Irrigation) 1,000 ml IRR ASDIRECTED PRN PRN Reason: delivery Last Admin: 04/26/20 11:20 Dose: 1,000 ml Documented by: Terbutaline Sulfate (Brethine) 0.25 mg SUBCUT ASDIRECTED PRN PRN Reason: Tacysystole Witch Leanne (Tucks) 1 pad TOP ASDIRECTED PRN PRN Reason: comfort care Last Admin: 04/26/20 12:45 Dose: 1 tub Documented by: Discontinued Medications Fentanyl (Sublimaze) Confirm Administered Dose 100 mcg .ROUTE .STK-MED ONE Stop: 04/26/20 04:14 Ampicillin Sodium 2 gm/ Sodium (Chloride) 100 mls @ 200 mls/hr IV ONETIME ONE Stop: 04/25/20 15:29 Last Admin: 04/25/20 16:08 Dose: 200 mls/hr Documented by: Ampicillin Sodium 1 gm/ Sodium (Chloride) 50 mls @ 100 mls/hr IV Q4H [facility] Last Admin: 04/26/20 07:36 Dose: 100 mls/hr Documented by: Ropivacaine (Naropin 0.2%) Confirm Administered Dose 100 mls @ as directed .ROUTE .STK-MED ONE Stop: 04/26/20 04:14 Sodium Chloride (Normal Saline) Confirm Administered Dose 100 mls @ as directed .ROUTE .STK-MED ONE Stop: 04/26/20 13:28 Tranexamic Acid (Cyklokapron) Confirm Administered Dose 1,000 mg .ROUTE .STK-MED ONE Stop: 04/26/20 13:27 - Infant Interaction Infant Disposition, : to Nursery Infant Feeding: Bottle Fed Infant, Continues to Breastfeed, Other (see below) (Has been but not making enough milk yet, so supplementing with formula at this time) Support Person: - Recovery Exam Fundal Tone: Firm Fundal Level: 1 Fingerbreadths Below Umbilicus Fundal Placement: Midline Lochia Amount: Small Lochia Color: Brownish Perineum Description: Intact, Minimal Bruising/Swelling Other Perinuem Description: First degree tear with right periurethral tear Episiotomy/Laceration: None Bladder Status: Voiding Urinary Elimination: Voided - Exam General: Alert, Oriented, Cooperative, No Acute Distress HEENT: Pupils Equal, Mucous Membr. Moist/[place] Neck: Supple, Trachea Midline, No JVD, No Thyromegaly Lungs: Clear to Auscultation, Normal Respiratory Effort Cardiovascular: Regular Rate, Regular Rhythm GI/Abdominal Exam: Normal Bowel Sounds, Soft, Non-Tender, No Organomegaly, No Distention Extremities: Normal Inspection, Non-Tender, No Pedal Edema, Normal Capillary Refill Skin: Warm, Intact, Moist Neurological: No New Focal Deficit Psy/Mental Status: Alert, Normal Affect, Normal Mood - Problem List Review Problem List Initiated/Reviewed/Updated: Yes - Assessment Assessment:: 34yo s/p at 39w2d - Plan Plan:: -Monitor H&H and platelets -Continue routine care -Did receive adequate antibiotic prophylaxis with Ampicillin for GBS+ status -Prepare for discharge if continues to be stable <Yulia Du - Last Filed: 04/27/20 07:54> - Review of Systems Neurological: Denies: Dizziness - Patient Data Vital Signs - Most Recent: Last Vital Signs Temp 35.6 C L 04/27/20 07:41 Pulse 109 H 04/27/20 07:41 Resp 17 04/27/20 07:41 BP 121/74 04/27/20 07:41 Pulse Ox 98 04/27/20 07:41 Lab Results - Last 24 Hours: Laboratory Results - last 24 hr 04/26/20 04/26/20 04/27/20 Range/Units 13:55 18:02 05:50 WBC 11.92 H 13.11 H 11.55 H (4.0-11.0) K/uL RBC 3.81 L 3.70 L 3.20 L (4.30-5.90) M/uL Hgb 11.6 L 11.2 L 9.9 L (12.0-16.0) g/dL Hct 34.7 L 33.6 L 29.0 L (36.0-46.0) % MCV 91.1 90.8 90.6 (80.0-98.0) fL MCH 30.4 30.3 30.9 (27.0-32.0) pg MCHC 33.4 33.3 34.1 (31.0-37.0) g/dL RDW Std Deviation 48.8 49.2 49.0 (28.0-62.0) fl RDW Coeff of Kiya 15 15 15 (11.0-15.0) % Plt Count 113 L 106 L 99 L (150-400) K/uL MPV 11.90 12.10 H 11.60 (7.40-12.00) fL Neut % (Auto) 82.5 H (48.0-80.0) % Lymph % (Auto) 8.6 L (16.0-40.0) % Moca % (Auto) 8.1 (0.0-15.0) % Eos % (Auto) 0.6 (0.0-7.0) % Baso % (Auto) 0.2 (0.0-1.5) % Neut # (Auto) 9.8 H (1.4-5.7) K/uL Lymph # (Auto) 1.0 (0.6-2.4) K/uL Moca # (Auto) 1.0 H (0.0-0.8) K/uL Eos # (Auto) 0.1 (0.0-0.7) K/uL Baso # (Auto) 0.0 (0.0-0.1) K/uL Nucleated RBC % 0.0 0.0 0.0 /100WBC Nucleated RBCs # 0 0 0 K/uL Med Orders - Current: Current Medications Acetaminophen (Tylenol Extra Strength) 1,000 mg PO Q6H PRN PRN Reason: Pain Last Admin: 04/26/20 22:43 Dose: 1,000 mg Documented by: Ascorbic Acid (Vitamin C) 500 mg PO BIDMEALS REDD Benzocaine/Menthol (Dermoplast Pain Relief 20%-0.5% [place]) 78 gm TOP ASDIRECTED PRN PRN Reason: Perineal Comfort Measure Last Admin: 04/26/20 12:44 Dose: 1 canister Documented by: Bisacodyl (Dulcolax) 10 mg RECTAL ONETIME PRN PRN Reason: Constipation Butorphanol Tartrate (Stadol) 1 mg IVPUSH Q1H PRN PRN Reason: Pain Carboprost Tromethamine (Hemabate Ds) 250 mcg IM ASDIRECTED PRN PRN Reason: Post Hemorrhage Docusate Sodium (Colace) 100 mg PO BID PRN PRN Reason: Constipation Last Admin: 04/26/20 12:44 Dose: 100 mg Documented by: Emollient Ointment (Lansinoh Hpa) 0 gm TOP ASDIRECTED PRN PRN Reason: Sore Nipples Last Admin: 04/26/20 12:44 Dose: 7 gm Documented by: Ferrous Sulfate (Ferrous Sulfate) 325 mg PO BIDMEALS REDD Oxytocin/Sodium Chloride (Oxytocin 30 Unit/500 Ml-Ns) 30 unit in 500 mls @ 999 mls/hr IV TITRATE REDD Tranexamic Acid 1,000 mg/ (Sodium Chloride) 110 mls @ 660 mls/hr IV ONETIME PRN PRN Reason: Bleeding Last Admin: 04/26/20 13:30 Dose: 660 mls/hr Documented by: Oxytocin/Sodium Chloride (Oxytocin 30 Unit/500 Ml-Ns) 30 unit in 500 mls @ 2 mls/hr IV TITRATE [facility]; Protocol Last Titration: 04/26/20 10:37 Dose: 999 munits/min, 999 mls/hr Documented by: Lactated Ringer's (Ringers, Lactated) 1,000 mls @ 150 mls/hr IV ASDIRECTED REDD Last Admin: 04/26/20 07:41 Dose: 150 mls/hr Documented by: Ibuprofen (Motrin) 800 mg PO Q8H PRN PRN Reason: Pain Lidocaine HCl (Xylocaine 1%) 50 ml INJECT ONETIME PRN PRN Reason: Laceration repair Methylergonovine Maleate (Methergine) 0.2 mg IM ASDIRECTED PRN PRN Reason: Post Hemorrhage Last Admin: 04/26/20 13:22 Dose: 0.2 mg Documented by: Misoprostol (Cytotec) 200 mcg PO ONETIME PRN PRN Reason: Post Hemorrhage Last Admin: 04/26/20 13:44 Dose: 1,000 mcg Documented by: Misoprostol (Cytotec) 25 mcg VAG Q4H PRN PRN Reason: Cervical Ripening Last Admin: 04/25/20 20:15 Dose: 25 mcg Documented by: Nalbuphine HCl (Nubain) 10 mg IVPUSH Q1H PRN PRN Reason: Pain (severe 7-10) Ondansetron HCl (Zofran) 4 mg IVPUSH Q6H PRN PRN Reason: Nausea/Vomiting Oxycodone HCl (Oxycodone) 5 mg PO Q2H PRN PRN Reason: Pain Sertraline HCl (Zoloft) 75 mg PO DAILY [facility] Sodium Chloride (Saline Flush) 10 ml FLUSH ASDIRECTED PRN PRN Reason: Keep Vein Open Sodium Chloride (Saline Flush) 2.5 ml FLUSH ASDIRECTED PRN PRN Reason: Keep Vein Open Sodium Chloride (Normal Saline) 10 ml IV ASDIRECTED PRN PRN Reason: IV Use Sterile Water (Sterile Water For Irrigation) 1,000 ml IRR ASDIRECTED PRN PRN Reason: delivery Last Admin: 04/26/20 11:20 Dose: 1,000 ml Documented by: Terbutaline Sulfate (Brethine) 0.25 mg SUBCUT ASDIRECTED PRN PRN Reason: Tacysystole Witch Leanne (Tucks) 1 pad TOP ASDIRECTED PRN PRN Reason: comfort care Last Admin: 04/26/20 12:45 Dose: 1 tub Documented by: Discontinued Medications Fentanyl (Sublimaze) Confirm Administered Dose 100 mcg .ROUTE .STK-MED ONE Stop: 04/26/20 04:14 Ampicillin Sodium 2 gm/ Sodium (Chloride) 100 mls @ 200 mls/hr IV ONETIME ONE Stop: 04/25/20 15:29 Last Admin: 04/25/20 16:08 Dose: 200 mls/hr Documented by: Ampicillin Sodium 1 gm/ Sodium (Chloride) 50 mls @ 100 mls/hr IV Q4H [facility] Last Admin: 04/26/20 07:36 Dose: 100 mls/hr Documented by: Ropivacaine (Naropin 0.2%) Confirm Administered Dose 100 mls @ as directed .ROUTE .STK-MED ONE Stop: 04/26/20 04:14 Sodium Chloride (Normal Saline) Confirm Administered Dose 100 mls @ as directed .ROUTE .STK-MED ONE Stop: 04/26/20 13:28 Tranexamic Acid (Cyklokapron) Confirm Administered Dose 1,000 mg .ROUTE .STK-MED ONE Stop: 04/26/20 13:27 - Problem List & Annotations (1) Vaginal delivery SNOMED Code(s): 704201353 Code(s): O80 - ENCOUNTER FOR FULL-TERM UNCOMPLICATED DELIVERY Status: Acute Current Visit: No - My Orders Last 24 Hours: My Active Orders 04/26/20 Lunch Regular Diet [DIET] 04/26/20 11:09 Patient Status [ADT] Routine Notify Provider Vital Signs [RC] ASDIRECTED Vital Signs [RC] PER UNIT ROUTINE Acetaminophen [Tylenol Extra Strength] 1,000 mg PO Q6H PRN Benzocaine/Menthol [Dermoplast Pain Relief 20%-0.5% [place]] 78 gm TOP ASDIRECTED PRN Docusate Sodium [Colace] 100 mg PO BID PRN Ibuprofen [Motrin] 800 mg PO Q8H PRN Lanolin [Lansinoh HPA] See Dose Instructions TOP ASDIRECTED PRN bisacodyL [Dulcolax] 10 mg RECTAL ONETIME PRN oxyCODONE 5 mg PO Q2H PRN witch Leanne [Tucks] 1 pad TOP ASDIRECTED PRN Assess Lochia [WOMSER] Per Unit Routine Assess Uterine Involution [WOMSER] Per Unit Routine Breast Pump [WOMSER] Per Unit Routine Ice Therapy [OM.PC] Per Unit Routine Perineal Care [OM.PC] Per Unit Routine Peripheral IV Discontinue [OM.PC] Routine Sitz Bath [OM.PC] Per Unit Routine 04/26/20 11:10 Cooling Warming Measures [RC] ASDIRECTED 04/27/20 07:46 Ready for Discharge [RC] PER UNIT ROUTINE 04/27/20 08:00 Ascorbic Acid [Vitamin C] 500 mg PO BIDMEALS Ferrous Sulfate 325 mg PO BIDMEALS 04/27/20 09:00 Sertraline [Zoloft] 75 mg PO DAILY - Plan Plan:: I have reviewed and agree with the above. Hemoglobin and vital signs stable since hemorrhage; patient denies symptoms of acute blood loss anemia. Begin iron/vitamin C supplementation. Desires discharge home today if baby cleared by Rug [employer]. Reviewed discharge instructions and symptoms of anemia with patient.
--- NOTE | 2020-04-27 07:58 | PCM.PRNOTE ---
- Free Text/Narrative Note: Anes Note Epidural pump is reporting air in line. There was no air in line, as this infusion has been running for hours. A new epidural infusion tubing was placed. Infusion now continues without any problem. Patient reports excellent (0/10) discomfort. Time with patient [id number] Keenan Claire CRNA
[2020-04-27] MEDS ORDERED: Ferrous Sulfate 325 MG Tab PO SCH (08:00)
[2020-04-27] MEDS ORDERED: Ascorbic Acid 500 MG Tab PO SCH (08:00)
[2020-04-27] MEDS ORDERED: Sertraline 25 MG Tab PO SCH (09:00)
[2020-04-27] MEDS: Acetaminophen 500 MG Tab PO PRN (14:09)
== END 2020-04-27 14:58 | disposition home or self-care (01) | DRG 560 ==
LOC: MW.OB 10:37 → OBSVTOIN 04-26 10:37 → MW.OB 04-26 16:48
PROVIDERS: ADMIT Obstetrics & Gynecology; ATTEND Obstetrics & Gynecology
PROC: 10E0XZZ Delivery of Products of Conception, External Approach (ICD-10-PCS; principal; 2020-04-26)
PROC: 10907ZC Drainage of Amniotic Fluid, Therapeutic from Products of Conception, Via Natural or Artificial Opening (ICD-10-PCS; 2020-04-26)
PROC: 3E0P7VZ Introduction of Hormone into Female Reproductive, Via Natural or Artificial Opening (ICD-10-PCS; 2020-04-26)
PROC: 0HQ9XZZ Repair Perineum Skin, External Approach (ICD-10-PCS; 2020-04-26)
PROC: 4A1HXCZ Monitoring of Products of Conception, Cardiac Rate, External Approach (ICD-10-PCS; 2020-04-26)
PROC: 3E0R3BZ Introduction of Anesthetic Agent into Spinal Canal, Percutaneous Approach (ICD-10-PCS; 2020-04-26)
DX: O99.12 Other diseases of the blood and blood-forming organs and certain disorders involving the immune mechanism complicating childbirth (principal); D69.6 Thrombocytopenia, unspecified; Z37.0 Single live birth; O99.824 Streptococcus B carrier state complicating childbirth; O70.0 First degree perineal laceration during delivery; O69.81X0 Labor and delivery complicated by cord around neck, without compression, not applicable or unspecified; Z3A.39 39 weeks gestation of pregnancy; O72.1 Other immediate postpartum hemorrhage; O76 Abnormality in fetal heart rate and rhythm complicating labor and delivery; Z20.828 Contact with and (suspected) exposure to other viral communicable diseases
CPT/HCPCS: 01967; 36415; 51702; 59025; 59409; 85025; 85027; 86592; 86850; 86900; 86901; A9270-GY; J0290; J2210; J2590; J2795; J3010; J7050; J7120; U0002